=== PATIENT | female | born 1955 | race Caucasian/White ===

== ENCOUNTER → 2017-02-23 | Outpatient (CLI) | payer OTHER | LOC: FIMAGING 15:30 | PROVIDERS: ATTEND Family Medicine | DX: Z12.31 Encounter for screening mammogram for malignant neoplasm of breast (principal) | CPT/HCPCS: G0202 ==

== ENCOUNTER 2017-11-25 06:50 | Day surgery (SDC) | payer OTHER ==
--- NOTE | 2017-11-25 06:10 | PDANEPAE ---
ANE History of Present Illness 62 yo female with B CTS for L CTR today and R CTR on 01/11. ANE Past Medical History - Cardiovascular History Hx Hypertension: Yes Hx Arrhythmias: No Hx Chest Pain: No Hx Coronary Artery / Peripheral Vascular Disease: No Hx CHF / Valvular Disease: No Hx Palpitations: No - Pulmonary History Hx COPD: No Hx Asthma/Reactive Airway Disease: No Hx Recent Upper Respiratory Infection: No Hx Oxygen in Use at Home: No Hx Sleep Apnea: Yes Sleep Apnea Screening Result - Last Documented: Negative - Neurologic History Hx Cerebrovascular Accident: No Hx Seizures: No Hx Dementia: No - Endocrine History Hx Diabetes: Yes Hypothyroid: Yes Obesity: no Endocrine History Comment: hypothyroid - Renal History Hx Renal Disorders: No - Liver History Hx Hepatic Disorders: No - Neurological & Psychiatric Hx Hx Neurological and Psychiatric Disorders: No - Cancer History Hx Cancer: No - Congenital Disorder History Hx Congenital Disorders: No - GI History GERD: mild Hx Gastrointestinal Disorders: No Gastrointestinal History Comment: omeprazole - Other Health History Other Health History: Scleroderma. sjogrens disease. carpal tunnel - Chronic Pain History Chronic Pain: No - Surgical History Prior Surgeries: Tonsillectomy. paratidectomy. ANE Review of Systems Review of Systems: - Exercise capacity METS (RN): 5 METS - Systems Constitutional: Reports: no symptoms EENMT: Reports: no symptoms Respiratory: Reports: no symptoms ANE Patient History - Allergies Allergies/Adverse Reactions: Sulfa (Sulfonamide Antibiotics) Allergy (Severe, Verified 11/25/17 07:22) ASHLEIGH IAN SYNDROME - Home Medications Home Medications: Calcium Carb W/Vit D [Calcium Carb W/Vit D 500/200 (OTC)] 1,000 mg PO DAILY 07/22 [Last Taken 11/24/17] Cholecalciferol Vit D3 [Vitamin D3 2000 units (OTC)] 2,000 units PO DAILY [Last Taken 11/24/17] Coenzyme Q10 [Co Q-10 30 mg (OTC)] 1 tab PO DAILY 05/20/12 [Last Taken 11/24/17] Levothyroxine [Synthroid 88 mcg (RX)] 88 mcg PO DAILY06 05/20/12 [Last Taken 04:00] Alpha-3 Fatty Acids/Fish Oil [Alpha 3 Fish Oil Softgel] 2 each PO DAILY [Last Taken 11/24/17] Prasterone (Dhea)/Calcium Carb [Dhea 50 mg Tablet] 1 each PO DAILY 05/20/12 [ Last Taken 11/24/17] Ranitidine HCl [Acid Control] 150 mg PO DAILY 05/20/12 [Last Taken 11/25/17 04: 00] Amlodipine Besylate 10/26/17 [Last Taken 11/25/17 04:00] - NPO status NPO Since - Liquids (Date): 11/25/17 NPO Since - Liquids (Time): 04:00 (water) - Anes Hx Anes Hx: no prior problems - Smoking Hx Smoking Status: Former smoker - Family Anes Hx Family Anes Hx: neg - N/A Family Hx Anesthesia Complications: none ANE Labs/Vital Signs - Vital Signs Blood Pressure: 149/85 Heart Rate: 78 O2 Sat (%): 98 Height: 162.56 cm Weight: 64.41 kg ANE Physical Exam - Airway Neck exam: FROM Mallampati Score: Class 2 Mouth exam: normal dental/mouth exam - Pulmonary Pulmonary: clear to auscultation - Cardiovascular Cardiovascular: regular rate and rhythym - ASA Status ASA Status: II ANE Anesthesia Plan Anesthesia Plan: GA with mask Total IV Anesthesia: Yes
[2017-11-25] MEDS ORDERED: LR 1,000 ML IV ONE (06:58)
[2017-11-25] MEDS ORDERED: LIDOCAINE 1% 2 ML INJ ONE (07:03)
--- NOTE | 2017-11-25 07:52 | PDHPUP ---
History & Physical Update H&P update statement: This history and physical update is based on an assessment of the patient which was completed after admission or registration (within 24 hours), but prior to the surgery/procedure. RRR CTAB
[2017-11-25] MEDS ORDERED: ceFAZolin 2 GM/SWFI 2 GM/20 ML SYR IVP ONE (07:53)
[2017-11-25] MEDS ORDERED: LIDOCAINE 1% 300 MG/30 ML SDV ONE (07:53)
[2017-11-25] MEDS ORDERED: BUPIVACAINE 0.5% 30 ML SDV ONE (07:54)
[2017-11-25] MEDS ORDERED: PROPOFOL/EMULSION 500 MG/50 ML BOTTLE IV ONE (08:10)
[2017-11-25] MEDS ORDERED: fentaNYL 100 MCG/2 ML INJ ONE (08:10)
[2017-11-25] MEDS ORDERED: DEXAMETHASONE 4 MG/ML VIAL ONE (08:10)
[2017-11-25] MEDS ORDERED: LIDOCAINE 2% 5 ML SDV ONE (08:10)
[2017-11-25] MEDS ORDERED: KETOROLAC 30 MG/1 ML SDV ONE (08:39)
--- NOTE | 2017-11-25 08:47 | POSTOPPROG ---
Post Op Note Date of Operation: 11/25/17 Surgeon: Anselmo Dodge Commercial Glazier: Michelle Leyva PA-C Anesthesia: IV Sedation, Local (Specify) Pre-op Diagnosis: Left CTS Post-op Diagnosis: left CTS Procedure: left OCTR Inf/Abcess present in the surg proc area at time of surgery?: No EBL: Minimal
[2017-11-25] MEDS ORDERED: fentaNYL 100 MCG/2 ML INJ IVP PRN (08:51)
[2017-11-25] MEDS ORDERED: NALOXONE HCL 0.4 MG/ML INJ IVP PRN (08:51)
[2017-11-25] MEDS ORDERED: DIAZEPAM 10 MG/2 ML SYR IVP PRN (08:51)
[2017-11-25] MEDS ORDERED: PROMETHAZINE HCL 25 MG/ML INJ IVP PRN (08:51)
[2017-11-25] MEDS ORDERED: ONDANSETRON 4 MG/2 ML VIAL IVP PRN (08:51)
[2017-11-25] MEDS ORDERED: ALBUTEROL 3 ML DEYVIAL IH PRN (08:51)
[2017-11-25] MEDS ORDERED: HYDROCODONE/APAP 5/325 TAB PO PRN (08:51)
[2017-11-25] MEDS ORDERED: ACETAMINOPHEN 500 MG TAB PO PRN (08:51)
[2017-11-25] MEDS ORDERED: LR 500 ML IV PRN (08:51)
--- NOTE | 2017-11-25 08:51 | POSTANESTH ---
Post Anesthetic Evaluation Cardiovascular Status: Normal, Stable Respiratory Status: Normal, Stable Level of Consciousness/Mental Status: Can Participate in Eval, Mildly Sleepy, Arousable Pain Control: Adequate, Prn Tx Ordered Nausea/Vomiting Control: Adequate, Prn Tx Ordered Complications Possibly Related to Anesthesia: None Noted
[2017-11-25 09:08] VITALS: BP 110/65
[2017-11-25 09:31] VITALS: PULSE 60; RESP 16; TEMP 97.9; O2SAT 96
--- NOTE | 2017-11-25 22:46 | GOP ---
[f rep st] OPERATIVE REPORT PATIENT: LIZY VALIENTE DATE OF SERVICE: 11/25/17 PATIENT DATE OF : 1955 SURGEON: Anselmo Dodge M.D. FLAT FINISHER: Michelle Leyva PA-C Mrs. Reddy assistance was medically necessary for patient positioning and the retraction of vital structures. ANESTHESIA: MAC / regional anesthesia by surgeon PRE-OPERATIVE DIAGNOSES: Left carpal tunnel syndrome (ICD-10 code G56.00 -- Carpal tunnel syndrome) POST-OPERATIVE DIAGNOSES: Left carpal tunnel syndrome (ICD-10 code G56.00 -- Carpal tunnel syndrome) OPERATIVE PROCEDURES: CPT code 58601 -- Left open carpal tunnel release Modifier 47 Regional anesthesia by surgeon EBL: 0.1cc COMPLICATIONS: None TOURNIQUET TIME: 16 minutes at 250 mmHg BRIEF CLINICAL NOTE: This is a very pleasant 62 year old female with a significant history for left carpal tunnel syndrome. As such, I have discussed the risks, benefits, alternatives, and complications associated with both non- operative (specifically, observation, splinting, injections) and operative ( specifically, left open carpal tunnel release) forms of treatment. The patient fully understands the risks, benefits, alternatives, and complications associated with both forms of treatment and wishes to proceed with operative intervention as outlined above. The patient has signed the informed consent form for surgery. OPERATIVE NOTE: On the day of surgery, all of the patients questions were answered. The patient was then transferred from the pre-operative area into the operating room and a formal, Time-Out procedure was performed. The patient was identified by name, medical record number, social security number, and date of . In addition, the patients left upper extremity was identified as the correct portion of the patients body for surgery with the patients left hand and wrist being identified as the correct portion of that extremity for surgery. The anesthesia team administered pre-operative antibiotics for prophylaxis. The brachium was then padded with webril and tourniquet was applied. Next, a mixture of 1% lidocaine and 0.5% Marcaine was then utilized to perform a regional block of the operative site. The extremity was then prepped and draped in the normal sterile fashion. A sterile marking pen was then utilized to raymond out a 2-cm longitudinal incision in line with the radial border of the ring finger along the radial aspect of the hypothenar eminence. An Esmarch was utilized to exsanguinate the left upper extremity and the tourniquet was inflated to 250mmHg. A #15 blade was then used to incise the skin. Meticulous hemostasis was obtained in the subcutaneous plane. The palmar fascia was split longitudinally utilizing a #15 blade. Following this, the transverse carpal ligament was then released utilizing a #15 blade. The release was completed distally utilizing a pair of Littler scissors taking great care to protect the superficial and deep palmar arches. At the completion of the procedure, the transverse carpal ligament had been released in its entirety and the median nerve was completely decompressed throughout the length of the carpal tunnel. The wound was then copiously irrigated with sterile normal saline. The skin was then re-approximated utilizing 4-0 nylon sutures. The skin was then cleaned with sterile normal saline and dried. A Xeroform gauze dressing was then applied followed by a dry sterile dressing followed by a compressive Coban wrap. Once the Coban wrap was in place, the tourniquet was deflated. After complete deflation of the tourniquet, all fingers and the thumb demonstrated brisk capillary refill. The patient was then reversed from anesthesia and transferred from the operating room table to the postoperative gurney and transferred from the operating room to the post anesthesia care unit in stable condition. POSTOPERATIVE PLAN: The patient will remain the current dressing for the next 2 weeks. I will see the patient back in the office in 2 weeks at which point the original dressing will be removed and the sutures will be removed. /[id number]/MODL MTDD
== END 2017-11-25 09:45 | disposition home or self-care (01) ==
LOC: FSGY 06:50
PROVIDERS: ATTEND Orthopaedic Surgery Hand Surgery
DX: G56.02 Carpal tunnel syndrome, left upper limb (principal); I10 Essential (primary) hypertension; K21.9 Gastro-esophageal reflux disease without esophagitis; F32.9 Major depressive disorder, single episode, unspecified; M81.0 Age-related osteoporosis without current pathological fracture; Z88.2 Allergy status to sulfonamides; Z87.891 Personal history of nicotine dependence; Z95.0 Presence of cardiac pacemaker
CPT/HCPCS: J0690; J1100; J1885; J2704; J3010

== ENCOUNTER 2018-01-11 06:01 | Day surgery (SDC) | payer OTHER ==
--- NOTE | 2018-01-11 06:06 | PDANEPAE ---
ANE History of Present Illness 62 yo female with CTS for CTR on R to match L CTR done 11/25/17. ANE Past Medical History - Cardiovascular History Hx Hypertension: Yes Hx Arrhythmias: No Hx Chest Pain: No Hx Coronary Artery / Peripheral Vascular Disease: No Hx CHF / Valvular Disease: No Hx Palpitations: No - Pulmonary History Hx COPD: No Hx Asthma/Reactive Airway Disease: No Hx Recent Upper Respiratory Infection: No Hx Oxygen in Use at Home: No Hx Sleep Apnea: Yes Sleep Apnea Screening Result - Last Documented: Positive - Neurologic History Hx Cerebrovascular Accident: No Hx Seizures: No Hx Dementia: No - Endocrine History Hx Diabetes: Yes Hypothyroid: Yes Hyperthyroid: No Obesity: no Endocrine History Comment: hypothyroidism. sjogrens disease - Renal History Hx Renal Disorders: No - Liver History Hx Hepatic Disorders: No - Neurological & Psychiatric Hx Hx Neurological and Psychiatric Disorders: No - Cancer History Hx Cancer: No - Congenital Disorder History Hx Congenital Disorders: No - GI History GERD: mild Hx Gastrointestinal Disorders: Yes Gastrointestinal History Comment: reflux takes rantidine - Other Health History Other Health History: Scleroderma. wears glasses - Chronic Pain History Chronic Pain: No - Surgical History Prior Surgeries: 01/11/18 right carpal tunnel surgery with Master. 11/25/17 left carpal tunnel surgery with Master. Tonsillectomy. paratidectomy. C- section ANE Review of Systems Review of systems is: negative Review of Systems: - Exercise capacity METS (RN): 5 METS ANE Patient History - Allergies Allergies/Adverse Reactions: Sulfa (Sulfonamide Antibiotics) Allergy (Severe, Verified 12/17/17 14:17) ASHLEIGH IAN SYNDROME - Home Medications Home Medications: RX: Calcium Carb W/Vit D [Calcium Carb W/Vit D 500/200 (*)] 05/20/12 [Last Taken 1 Week Ago ~01/04/18] RX: Cholecalciferol Vit D3 [Vitamin D3 2000 units] 05/20/12 [Last Taken 1 Week Ago ~01/04/18] RX: Coenzyme Q10 [Co Q-10 30 mg (OTC)] 05/20/12 [Last Taken 1 Week Ago ~] RX: Levothyroxine [Synthroid 88 mcg (*)] 05/20/12 [Last Taken 01/11/18 03:45] RX: [place]-3 Fatty Acids/Fish Oil [[place] 3 Fish Oil Softgel] 05/20/12 [Last Taken 1 Week Ago ~01/04/18] RX: Prasterone (Dhea)/Calcium Carb [Dhea 50 mg Tablet] 05/20/12 [Last Taken ] RX: Ranitidine HCl [Acid Control] 05/20/12 [Last Taken 01/11/18 03:45] Amlodipine Besylate 10/26/17 [Last Taken 01/11/18 03:45] - NPO status NPO Status: no food or drink >8 hours - Anes Hx Anes Hx: no prior problems - Smoking Hx Smoking Status: Former smoker Marijuana use: No - Alcohol Use Alcohol Use: Occasionally - Family Anes Hx Family Anes Hx: neg - N/A Family Hx Anesthesia Complications: none ANE Labs/Vital Signs - Vital Signs Vital Signs: reviewed preoperatively; see RN documention for details Height: 162.56 cm Weight: 64.41 kg ANE Physical Exam - Airway Neck exam: FROM Mallampati Score: Class 2 Mouth exam: normal dental/mouth exam - Pulmonary Pulmonary: clear to auscultation - Cardiovascular Cardiovascular: regular rate and rhythym - ASA Status ASA Status: II ANE Anesthesia Plan Anesthesia Plan: GA with mask Total IV Anesthesia: Yes
[2018-01-11] MEDS ORDERED: LIDOCAINE 1% 2 ML INJ ID PRN (06:24)
[2018-01-11] MEDS ORDERED: LR 1,000 ML IV ONE (06:24)
[2018-01-11] MEDS ORDERED: LIDOCAINE 1% 2 ML INJ ONE (06:27)
[2018-01-11 06:34] VITALS: PULSE 82
[2018-01-11] MEDS ORDERED: ceFAZolin 2 GM/SWFI 2 GM/20 ML SYR IVP ONE (06:52)
--- NOTE | 2018-01-11 06:53 | PDHPUP ---
History & Physical Update H&P update statement: This history and physical update is based on an assessment of the patient which was completed after admission or registration (within 24 hours), but prior to the surgery/procedure. RRR CTAB H&P update: no change in patient's condition since H&P completed
[2018-01-11] MEDS ORDERED: LIDOCAINE 1% 300 MG/30 ML SDV ONE (06:59)
[2018-01-11] MEDS ORDERED: BUPIVACAINE 0.5% 30 ML SDV ONE (06:59)
--- NOTE | 2018-01-11 07:00 | PDGENHP ---
History & Physical History of Present Illness: Barb is a pleasant 62 year old female who presented to our office with right CTS. She underwent conservative treatment and is requiring CTR. Pertinent Past, Social, Family History: Non-contributory Relevant Physical Exam: Right wrist: Normal resting posture. + Durkan's. + Tinnel's. medial nerve: decreased. Full ROM without pain Cardiorespiratory Assessment: RRR, CTAB
[2018-01-11] MEDS ORDERED: fentaNYL 100 MCG/2 ML INJ ONE (07:08)
[2018-01-11] MEDS ORDERED: PROPOFOL 200 MG/20 ML VIAL ONE ×2 (07:08)
[2018-01-11] MEDS ORDERED: KETOROLAC 30 MG/1 ML SDV ONE (07:16)
[2018-01-11] MEDS ORDERED: LIDOCAINE 2% 5 ML SDV ONE (07:16)
[2018-01-11] MEDS ORDERED: DEXAMETHASONE 4 MG/ML VIAL ONE (07:16)
[2018-01-11] MEDS ORDERED: ceFAZolin 1 GM VIAL ONE ×2 (07:22)
[2018-01-11] MEDS ORDERED: NALOXONE HCL 0.4 MG/ML INJ IVP PRN (07:42)
[2018-01-11] MEDS ORDERED: HYDROCODONE/APAP 5/325 TAB PO PRN (07:42)
[2018-01-11] MEDS ORDERED: LR 500 ML IV PRN (07:42)
[2018-01-11] MEDS ORDERED: ALBUTEROL 3 ML DEYVIAL IH PRN (07:42)
[2018-01-11] MEDS ORDERED: fentaNYL 100 MCG/2 ML INJ IVP PRN (07:42)
[2018-01-11] MEDS ORDERED: ONDANSETRON 4 MG/2 ML VIAL IVP PRN (07:42)
--- NOTE | 2018-01-11 07:57 | POSTOPPROG ---
Post Op Note Date of Operation: 01/11/18 Surgeon: Anselmo Dodge Ground Equipment Mechanic: Michelle Leyva Anesthesiologist: Charissa Pre-op Diagnosis: right CTR Post-op Diagnosis: right CTR Procedure: Right OCTR Inf/Abcess present in the surg proc area at time of surgery?: No EBL: Minimal
[2018-01-11 07:58] VITALS: TEMP 97.9
[2018-01-11 08:10] VITALS: BP 122/57; RESP 20
[2018-01-11 08:14] VITALS: O2SAT 98
--- NOTE | 2018-01-12 05:41 | GOP ---
[f rep st] OPERATIVE REPORT DATE OF OPERATION: 01/11/2018 SURGEON: Anselmo Dodge MD PREOPERATIVE DIAGNOSIS: Right carpal tunnel. POSTOPERATIVE DIAGNOSIS: Right carpal tunnel. PROCEDURE PERFORMED: Right open carpal tunnel release. FINDINGS: ESTIMATED BLOOD LOSS: 0.1 cc. DESCRIPTION OF PROCEDURE: This is a very pleasant 62-year-old female who underwent a right open carp al tunnel release. BOILER COVERER: Michelle Leyva PA-C COMPLICATIONS: None. IMPLANTS: None. TOURNIQUET TIME: 17 minutes at 250 mmHg. /[id number]/MODL
== END 2018-01-11 08:40 | disposition home or self-care (01) ==
LOC: FSGY 06:01
PROVIDERS: ATTEND Orthopaedic Surgery Hand Surgery
PROC: 01N50ZZ Release Median Nerve, Open Approach (ICD-10-PCS; principal; 2018-01-11 07:15)
DX: G56.01 Carpal tunnel syndrome, right upper limb (principal)
CPT/HCPCS: J0690; J1100; J1885; J2704; J3010

== ENCOUNTER 2018-02-02 09:59 | Day surgery (SDC) | payer OTHER ==
--- NOTE | 2018-01-29 21:45 | PDGENHP ---
History and Physical History and Physical: Assessment and Plan: 1. Genuine stress incontinence, female Barb has straightforward stress urinary incontinence with a mobile urethra. We discussed all conservative and surgical options. She has tried pelvic floor strengthening without any significant benefit in her symptoms. As a result she is requesting surgical intervention. This will be mid urethral sling procedure. She will check as to whether she would prefer to perform the procedure at [facility] or [facility]. She will call back next week to schedule. I will perform her preoperative counseling over the phone. Subjective: Patient ID: Barb Khan is a 62 y.o. female who presents to [facility] for incontinence. 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 She presents to discuss urinary incontinence. This has been present for several years. She leaks with sneezing, coughing, and jumping on a trampoline. Caffeine seems to make her symptoms worse. Caffeine also causes urinary urgency and very rare urgency incontinence. She is and has not been sexually active for several years. She is planning to move to [facility] next summer. Her largest child weighed 8 lbs. 15 oz. One was born by section. PastMedicalHistory Past Medical History: Diagnosis Date Allergy to pollen Autoimmune disease (HC code) Sjogren's Breast disorder Left breast bx- benign Depression Hypertension Scleroderma (HC code) Thyroid disease Urinary tract infection PastSurgicalHistory Past Surgical History: Procedure Laterality Date BREAST SURGERY Left breast biopsy- benign SECTION SALIVARY GLAND SURGERY SHOULDER SURGERY Right TONSILLECTOMY WRIST SURGERY Right CURRENT MEDICATIONS: Current Outpatient Prescriptions Medication Sig amLODIPine (NORVASC) 5 mg tablet Take 5 mg by mouth daily. buPROPion (WELLBUTRIN SR) 150 mg 12 hr tablet Take 150 mg by mouth 2 times daily. estradiol-norethindrone (ACTIVELLA) 1-0.5 mg per tablet Take 1 tablet by mouth daily. levothyroxine (SYNTHROID) 88 mcg tablet Take 88 mcg by mouth daily. No current facility-administered medications for this visit. ALLERGIES: Sulfa (sulfonamide antibiotics) I have reviewed, verified and agree with the past medical, surgical, , family, social and ROS history as documented by the RN today. Objective: Vital Signs: Visit Vitals BP 124/70 Pulse 75 Temp 36.5 C (97.7 F) (Temporal Artery) Resp 16 Ht 1.638 m (5' 4.5") Wt 67.7 kg (149 lb 3.2 oz) SpO2 97% BMI 25.21 kg/m Physical Exam Gen: This is an alert, well developed woman in no distress. Neuro: She moves all extremities. Psych: She is appropriate, oriented, with normal affect. Neck: No thyroid enlargement, adenopathy, or tenderness. Lungs: Clear to ascultation, no wheezes or rales. Heart: Regular rate and rhythm without obvious murmurs. Abdomen: Soft, non-tender, without guarding, rebound, or masses. Extremities: No edema or cyanosis. Pelvic: Normal external genitalia. Non-gaping introitus, vagina without discharge, adequately estrogenized, no significant prolapse. Cervix without lesions or discharge. Uterus normal sized, mobile, non-tender. Adnexa non- tender without enlargement. The urethra is mobile. She has gaping and slight leaking with coughing despite recently having emptied her bladder. DATA: I have reviewed the pertinent medical records. TIME/COMMUNICATION: I personally spent a total of 30 minutes. Of that 20 minutes was counseling/ coordination of patient's care. See my note above for details. Toi Pastor MD Board Certified Female Pelvic Medicine and Reconstructive Surgery Director of Minimally Invasive Gynecologic Surgery, [facility] Surgeon in Minimally Invasive Gynecologic Surgery [facility] Surgeon in Robotic Surgery
[2018-02-02] MEDS ORDERED: ACETAMINOPHEN 500 MG TAB PO ONE (10:35)
[2018-02-02] MEDS ORDERED: ceFAZolin 2 GM/SWFI 2 GM/20 ML SYR IVP ONE (10:35)
[2018-02-02] MEDS ORDERED: LR 1,000 ML IV ONE (10:36)
[2018-02-02] MEDS ORDERED: LIDOCAINE 1% 2 ML INJ ID PRN (10:36)
--- NOTE | 2018-02-02 12:24 | PDHPUP ---
History & Physical Update H&P update statement: This history and physical update is based on an assessment of the patient which was completed after admission or registration (within 24 hours), but prior to the surgery/procedure. H&P update: H&P reviewed & patient examined, no change in patient's condition since H&P completed
[2018-02-02] MEDS ORDERED: BUPIVACAINE/EPI 0.5% 30 ML SDV ONE (12:43)
[2018-02-02] MEDS ORDERED: PROPOFOL/EMULSION 500 MG/50 ML BOTTLE IV ONE (12:51)
[2018-02-02] MEDS ORDERED: fentaNYL 100 MCG/2 ML INJ ONE ×2 (12:51→13:14)
[2018-02-02] MEDS ORDERED: MIDAZOLAM 2 MG/2 ML VIAL ONE (12:51)
[2018-02-02] MEDS ORDERED: LIDOCAINE 2% 5 ML SDV ONE (13:06)
[2018-02-02] MEDS ORDERED: KETOROLAC 30 MG/1 ML SDV ONE (13:06)
[2018-02-02] MEDS ORDERED: ONDANSETRON 4 MG/2 ML VIAL ONE (13:06)
[2018-02-02] MEDS ORDERED: LR 500 ML IV PRN (13:11)
[2018-02-02] MEDS ORDERED: oxyCODONE IR 5 MG TAB PO PRN (13:11)
[2018-02-02] MEDS ORDERED: DIAZEPAM 5 MG/ML 1 ML SYR IVP PRN (13:11)
[2018-02-02] MEDS ORDERED: ACETAMINOPHEN 500 MG TAB PO PRN (13:11)
[2018-02-02] MEDS ORDERED: HYDROCODONE/APAP 5/325 TAB PO PRN (13:11)
[2018-02-02] MEDS ORDERED: ALBUTEROL 3 ML DEYVIAL IH PRN (13:11)
[2018-02-02] MEDS ORDERED: ONDANSETRON 4 MG/2 ML VIAL IVP PRN (13:11)
[2018-02-02] MEDS ORDERED: MEPERIDINE 25 MG/ML SYR IVP PRN (13:11)
[2018-02-02] MEDS ORDERED: DEXAMETHASONE 4 MG/ML VIAL IVP PRN (13:11)
[2018-02-02] MEDS ORDERED: fentaNYL 100 MCG/2 ML INJ IVP PRN (13:11)
[2018-02-02] MEDS ORDERED: NALOXONE HCL 0.4 MG/ML INJ IVP PRN (13:11)
[2018-02-02] MEDS ORDERED: PROMETHAZINE HCL 25 MG/ML INJ IVP PRN (13:11)
[2018-02-02] MEDS ORDERED: METOCLOPRAMIDE 10 MG/2 ML VIAL IVP PRN (13:11)
--- NOTE | 2018-02-02 13:11 | PDANEPAE ---
ANE Past Medical History - Cardiovascular History Hx Hypertension: Yes Hx Arrhythmias: No Hx Chest Pain: No Hx Coronary Artery / Peripheral Vascular Disease: No Hx CHF / Valvular Disease: No Hx Palpitations: No - Pulmonary History Hx COPD: No Hx Asthma/Reactive Airway Disease: No Hx Recent Upper Respiratory Infection: No Hx Oxygen in Use at Home: No Hx Sleep Apnea: Yes Sleep Apnea Screening Result - Last Documented: Negative - Neurologic History Hx Cerebrovascular Accident: No Hx Seizures: No Hx Dementia: No - Endocrine History Hx Diabetes: Yes Endocrine History Comment: hypothyroidism. sjogrens disease - Renal History Hx Renal Disorders: No - Liver History Hx Hepatic Disorders: No - Neurological & Psychiatric Hx Hx Neurological and Psychiatric Disorders: No - Cancer History Hx Cancer: No - Congenital Disorder History Hx Congenital Disorders: No - GI History Hx Gastrointestinal Disorders: Yes Gastrointestinal History Comment: reflux takes rantidine - Other Health History Other Health History: Scleroderma. wears glasses - Chronic Pain History Chronic Pain: No - Surgical History Prior Surgeries: 01/11/18 right carpal tunnel surgery with Master. 11/25/17 left carpal tunnel surgery with Master. Tonsillectomy. paratidectomy. C- section ANE Review of Systems Review of Systems: - Exercise capacity METS (RN): 5 METS ANE Patient History - Allergies Allergies/Adverse Reactions: Sulfa (Sulfonamide Antibiotics) Allergy (Severe, Verified 12/17/17 14:17) ASHLEIGH IAN SYNDROME - Home Medications Home Medications: Calcium Carb W/Vit D [Calcium Carb W/Vit D 500/200 (*)] 05/20/12 [Last Taken ] Cholecalciferol Vit D3 [Vitamin D3 2000 units] 05/20/12 [Last Taken 02/02/18] Coenzyme Q10 [Co Q-10 30 mg (OTC)] 05/20/12 [Last Taken 01/26/18] Levothyroxine [Synthroid 88 mcg (*)] 05/20/12 [Last Taken 02/02/18 04:00] [place]-3 Fatty Acids/Fish Oil [[place] 3 Fish Oil Softgel] 05/20/12 [Last Taken ] Prasterone (Dhea)/Calcium Carb [Dhea 50 mg Tablet] 05/20/12 [Last Taken ] Ranitidine HCl [Acid Control] 05/20/12 [Last Taken 02/02/18 04:00] Amlodipine Besylate 10/26/17 [Last Taken 02/02/18 04:00] - NPO status NPO Since - Liquids (Date): 02/02/18 NPO Since - Liquids (Time): 09:00 NPO Since - Solids (Date): 02/01/18 NPO Since - Solids (Time): 19:00 - Smoking Hx Smoking Status: Former smoker - Family Anes Hx Family Hx Anesthesia Complications: none ANE Labs/Vital Signs - Vital Signs Blood Pressure: 134/74 Heart Rate: 66 Respiratory Rate: 16 O2 Sat (%): 99 Height: 162.56 cm Weight: 64.41 kg ANE Physical Exam - Airway Neck exam: FROM Mallampati Score: Class 1 Mouth exam: normal dental/mouth exam - Pulmonary Pulmonary: no respiratory distress, no rales or rhonchi, clear to auscultation - Cardiovascular Cardiovascular: no murmur, rub, or gallop - ASA Status ASA Status: II ANE Anesthesia Plan Anesthesia Plan: GA w LMA
--- NOTE | 2018-02-02 13:27 | POSTOPPROG ---
Post Op Note Date of Operation: 02/02/18 Surgeon: Toi Pastor Office Communication Professor: None Anesthesiologist: Michelle Knox Anesthesia: GET(General Endotracheal) Pre-op Diagnosis: Stress incontinence Post-op Diagnosis: Same Procedure: TOT sling, cysto Findings: No bladder or urethral injury Inf/Abcess present in the surg proc area at time of surgery?: No EBL: Minimal Complications: None
--- NOTE | 2018-02-02 13:44 | POSTANESTH ---
Post Anesthetic Evaluation Cardiovascular Status: Normal, Stable Respiratory Status: Normal, Stable Level of Consciousness/Mental Status: Can Participate in Eval Pain Control: Adequate, Prn Tx Ordered Nausea/Vomiting Control: Adequate, Prn Tx Ordered Complications Possibly Related to Anesthesia: None Noted
[2018-02-02 14:23] VITALS: BP 117/68
--- NOTE | 2018-02-02 15:40 | GOP ---
[f rep st] OPERATIVE REPORT DATE OF OPERATION: 02/02/2018 SURGEON: Toi Pastor MD RESOLUTE PROFESSIONAL: None. ANESTHESIA: General. PREOPERATIVE DIAGNOSIS: Stress urinary incontinence. POSTOPERATIVE DIAGNOSIS: Stress urinary incontinence. PROCEDURE PERFORMED: 1. Transobturator sling. 2. Cystoscopy. FINDINGS: SPECIMENS: None. ESTIMATED BLOOD LOSS: Scant. DESCRIPTION OF PROCEDURE: The patient was taken to the operating room. She was identified. General anesthesia was administered and found to be adequate. She was placed in the lithotomy position and prepared and draped in normal sterile fashion. A Lujan catheter was placed in her bladder. A midurethral incision was made with a scalpel. Tunnels were created bilaterally out toward the obtu rator internus muscles. Skin incisions were made over the obturator notches. The Halo trocar was pl aced through the left skin incision, redirected around the ischial pubic ramifications, and out throu gh the vaginal incision using a vaginal finger as a guide. The lateral sulci were examined and no ev idence of vaginal injury had occurred. The sling was then attached and brought out along the same co urse. The exact same procedure was performed on the patient's right side. The sling was then adjust ed to allow a small midurethral gap. The vaginal epithelium was closed with 2-0 Vicryl, skin with 4- 0 Monocryl. Cystoscopy was then performed. Both ureters had vigorous jets of urine. There was no evidence of bl adder nor urethral injury seen. No mesh nor sutures were seen within the bladder nor urethra. No ob vious pathology was seen. Anesthesia was reversed and the patient was taken the PACU awake, in stable condition. COMPLICATIONS: None. DISPOSITION: Patient stable to PACU. /[id number]/MODL
== END 2018-02-02 14:23 | disposition home or self-care (01) ==
LOC: FSGY 09:59
PROVIDERS: ATTEND Obstetrics & Gynecology
PROC: 0TUC0JZ Supplement Bladder Neck with Synthetic Substitute, Open Approach (ICD-10-PCS; principal; 2018-02-02 11:45)
DX: N39.3 Stress incontinence (female) (male) (principal)
CPT/HCPCS: C1771; J0690; J1885; J2250; J2405; J2704; J3010

== ENCOUNTER → 2018-02-11 | Outpatient (CLI) | payer OTHER ==
[~2018-02-11] MED LIST: GADOBUTROL 10 ML VIAL IVP ONE
== END ==
LOC: FIMAGING 07:04
PROVIDERS: ATTEND Orthopaedic Surgery Hand Surgery
DX: R22.32 Localized swelling, mass and lump, left upper limb (principal); M79.9 Soft tissue disorder, unspecified; G56.02 Carpal tunnel syndrome, left upper limb; M18.12 Unilateral primary osteoarthritis of first carpometacarpal joint, left hand
CPT/HCPCS: A9585

== ENCOUNTER → 2018-02-24 | Outpatient (CLI) | payer OTHER | LOC: FIMAGING 08:11 | PROVIDERS: ATTEND Family Medicine | DX: Z12.31 Encounter for screening mammogram for malignant neoplasm of breast (principal) ==

== ENCOUNTER → 2019-03-08 | Outpatient (CLI) | payer OTHER, BC | LOC: CIMAGING 13:06 ==